=== PATIENT | male | born 1950 | race Caucasian/White ===

== ENCOUNTER 2023-07-30 14:10 | Inpatient (IN) ==
[2023-07-30] MEDS ORDERED: Ondansetron 4 mg VIAL 2 MG/ML 2 ml VIAL ONE (14:40)
[2023-07-30 14:43] LABS: INR 1.28 (0.83-1.13)
[2023-07-30] MEDS: Ondansetron 4 mg VIAL 2 MG/ML 2 ml VIAL IV ONE (14:43)
[2023-07-30] MEDS: Pantoprazole VIAL 40 MG VIAL IV ONE (14:43)
[2023-07-30 14:46] LABS: Hemoglobin 12.7 g/dL (13.2-16.3); Mean Corpuscular Hemoglobin 32.5 pg (27-33); Mean Corpuscular Hgb Conc 33.3 g/dL (31-36); Mean Corpuscular Volume 97.4 fL (80-97); Mean Platelet Volume 8.3 fL (7.5-11.2); Platelet Count 183 10^3/uL (150-450); Red Cell Distribution Width 13.6 % (12-17)
[2023-07-30] MEDS: NS 0.9% 1000 ml BAG 2,000 ML IV ONE (15:00)
[2023-07-30 15:13] LABS: Activated Partial Thrombo Time 24.6 seconds (26.0-38.0)
[2023-07-30] MEDS: Iodixanol (CONTRAST) 320 MG/ML 100 ML SDV IV ONE (15:16)
[2023-07-30 15:17] LABS: Albumin 3.8 g/dL (3.2-5.2); Albumin/Globulin Ratio 1.7 (1-3); Calcium 7.7 mg/dL (8.6-10.3); Creatinine, Serum 1.21 mg/dL (0.67-1.17); Globulin 2.3 g/dL (2-4); Potassium 3.9 mmol/L (3.5-5.0); Total Bilirubin 0.9 mg/dL (0.2-1.0); Total Protein 6.1 g/dL (6.4-8.9); eGFR CKD-EPI 63.6 (>60)
[2023-07-30 15:20] LABS: ABS Lymphocytes 1.4 10^3/uL (1.0-4.8); ABS Monocytes 1.8 10^3/uL (0.0-1.1); ABS Neutrophils 10.8 10^3/uL (1.5-7.6); ABS Nucleated RBC 0.01 10^3/ul; Lymphocyte % 9.9 %; Nucleated Red Blood Cells % 0.1 %/100WBC (0.0-0.8)
[2023-07-30] MEDS: Pantoprazole 80 mg in NS BAG 80 MG/250 ML BAG IV ONE (15:50)
[2023-07-30] MEDS ORDERED: Succinylcholine 200 mg VIAL 20 mg/ml 10 ml VIAL (200 mg) IV ONE (16:07)
[2023-07-30] MEDS ORDERED: Propofol 10 MG/ML 20 ML BTL IV ONE (16:07)
[2023-07-30] MEDS ORDERED: fentaNYL 100 mcg/2 ml 50 MCG/ML VIAL IV ONE (16:09)
[2023-07-30] MEDS ORDERED: Midazolam 2 mg/2 ml VIAL 1 mg/ml 2 ml VIAL (2 mg) IV SLOW PU ONE (16:21)
[2023-07-30 16:25] LABS: High Sensitivity Troponin 1 Hr 20 pg/mL (<20)
[2023-07-30] MEDS ORDERED: Naloxone 0.4 mg VIAL 0.4 mg/ml 1 ml VIAL IV PRN (16:32)
[2023-07-30] MEDS ORDERED: fentaNYL 100 mcg/2 ml 50 MCG/ML VIAL IV PRN (16:32)
[2023-07-30] MEDS ORDERED: NS 0.45% 1000 ml BAG 1,000 ML IV SCH (17:00)
[2023-07-30] MEDS ORDERED: Albumin Human 25% 25 GM/100 ML BTL IV ONE (17:12)
[2023-07-30] MEDS ORDERED: Phenylephrine 40 mcg/mL 10mL (400mcg) SYRINGE ONE (17:12)
[2023-07-30 19:07] LABS: Hematocrit 25.1 % (38-53); Hemoglobin 8.5 g/dL (13.2-16.3)
[2023-07-30] MEDS: Acetaminophen IV 1 GM/100ML 1,000 MG/100 ML BAG IV ONE (19:09)
[2023-07-30] MEDS: Lactated Ringers 1000 ml BAG 1,000 ML IV SCH (19:09)
[2023-07-30] MEDS: Buffered Lidocaine 1% SYRIN 1 ml INTRADERM ONE (19:09)
[2023-07-31 00:31] LABS: Hematocrit 25.2 % (38-53); Hemoglobin 8.6 g/dL (13.2-16.3)
[2023-07-31] MEDS: Pantoprazole 80 mg in NS BAG 80 MG/250 ML BAG IV SCH (01:27)
[2023-07-31 05:52] LABS: Hematocrit 22.9 % (38-53); Hemoglobin 8.1 g/dL (13.2-16.3); Mean Corpuscular Hgb Conc 35.3 g/dL (31-36); Mean Corpuscular Volume 96.2 fL (80-97); Mean Platelet Volume 8.5 fL (7.5-11.2); Platelet Count 121 10^3/uL (150-450); Red Blood Count 2.38 10^6/uL (4.06-5.63); Red Cell Distribution Width 13.3 % (12-17); White Blood Count 8.1 10^3/uL (3.6-10.2)
[2023-07-31 06:22] LABS: Calcium 7.1 mg/dL (8.6-10.3); Creatinine, Serum 0.84 mg/dL (0.67-1.17); Magnesium 1.9 mg/dL (1.9-2.7); Potassium 3.7 mmol/L (3.5-5.0); eGFR CKD-EPI 92.7 (>60)
[2023-07-31 06:31] LABS: ABS Lymphocytes 0.9 10^3/uL (1.0-4.8); ABS Monocytes 1.6 10^3/uL (0.0-1.1); ABS Neutrophils 5.6 10^3/uL (1.5-7.6); ABS Nucleated RBC 0.01 10^3/ul; Lymphocyte % 11.3 %; Nucleated Red Blood Cells % 0.1 %/100WBC (0.0-0.8)
[2023-07-31 06:32] LABS: RBC Morphology Normal (Normal)
[2023-07-31 08:55] LABS: Ferritin 582.1 ng/mL (24-336)
[2023-07-31 14:17] LABS: Hematocrit 23.1 % (38-53)
[2023-07-31] MEDS: Ferric Gluconate IV 250 MG in NS 0.9% 250 ml 200 ML IVPB SCH (14:46)
[2023-08-01] MEDS: Acetaminophen IV 1 GM/100ML 1,000 MG/100 ML BAG IV PRN (02:25)
[2023-08-01 05:40] LABS: Hematocrit 21.3 % (38-53); Hemoglobin 7.6 g/dL (13.2-16.3); Mean Corpuscular Hgb Conc 35.5 g/dL (31-36); Mean Corpuscular Volume 95.7 fL (80-97); Mean Platelet Volume 8.9 fL (7.5-11.2); Platelet Count 116 10^3/uL (150-450); Red Blood Count 2.23 10^6/uL (4.06-5.63); Red Cell Distribution Width 13.4 % (12-17); White Blood Count 7.6 10^3/uL (3.6-10.2)
[2023-08-01 06:26] LABS: Creatinine, Serum 0.78 mg/dL (0.67-1.17); Potassium 3.3 mmol/L (3.5-5.0); eGFR CKD-EPI 94.8 (>60)
[2023-08-01 07:09] LABS: ABS Lymphocytes 1.2 10^3/uL (1.0-4.8); ABS Monocytes 1.6 10^3/uL (0.0-1.1); ABS Neutrophils 4.8 10^3/uL (1.5-7.6); Lymphocyte % 15.7 %
[2023-08-01 07:10] LABS: Eosinophil % 0.1 %
[2023-08-01] MEDS: Potassium Chloride LIQUID 20 MEQ/15 ML LIQUID PO ONE (09:59)
[2023-08-01] MEDS ORDERED: Zosyn per Pharmacy NOTE FOLLOW UP SCH (15:00)
[2023-08-01] MEDS ORDERED: Vancomycin per Pharmacy 1 EA NOTE FOLLOW UP SCH (15:00)
[2023-08-01] MEDS: Piperacillin/Tazobac 3.375 BAG 3.375 GM/100 ML BAG IV ONE (15:31)
[2023-08-01 15:50] LABS: Urine Appearance Clear; Urine Bilirubin Negative (Negative); Urine Blood Negative (Negative); Urine Color Yellow; Urine Glucose Negative (Negative); Urine Ketones Negative (Negative); Urine Nitrite Negative (Negative); Urine Protein Trace (Negative); Urine Specific Gravity 1.022 (1.002-1.030); Urine Urobilinogen Negative (Negative); Urine pH 6.5 (5.0-8.0)
[2023-08-01] MEDS: Vancomycin 1,000 MG in NS 0.9% 250 ml 250 ML IVPB ONE (16:31)
[2023-08-01] MEDS: Acetaminophen IV 1 GM/100ML 1,000 MG/100 ML BAG IV ONE (20:27)
[2023-08-01 20:32] LABS: ABS Lymphocytes 0.8 10^3/uL (1.0-4.8); ABS Monocytes 1.2 10^3/uL (0.0-1.1); ABS Neutrophils 5.5 10^3/uL (1.5-7.6); Eosinophil % 0.1 %; Hematocrit 24.7 % (38-53); Hemoglobin 8.4 g/dL (13.2-16.3); Lymphocyte % 10.2 %; Mean Corpuscular Hemoglobin 33.1 pg (27-33); Mean Corpuscular Hgb Conc 34.2 g/dL (31-36); Mean Corpuscular Volume 96.8 fL (80-97); Mean Platelet Volume 8.1 fL (7.5-11.2); Platelet Count 149 10^3/uL (150-450); Red Blood Count 2.55 10^6/uL (4.06-5.63); Red Cell Distribution Width 13.4 % (12-17); White Blood Count 7.6 10^3/uL (3.6-10.2)
[2023-08-01] MEDS: ZOSYN 3.375 GM Q8H per EXTENDED INFUSION IV SCH (20:47)
[2023-08-01 20:49] LABS: Urine Appearance Clear; Urine Bilirubin Negative (Negative); Urine Blood 1+ (Negative); Urine Color Light-Yellow; Urine Glucose Trace (Negative); Urine Ketones Negative (Negative); Urine Nitrite Negative (Negative); Urine Protein Trace (Negative); Urine Specific Gravity 1.015 (1.002-1.030); Urine Urobilinogen Negative (Negative)
[2023-08-01 20:51] LABS: Urine Bacteria Absent /HPF (Absent); Urine Red Blood Cell Trace(0-2/hpf) /HPF (0-Trace); Urine Squamous Epithelial Cell Present /HPF (Absent); Urine White Blood Cell Trace(0-5/hpf) /HPF (0-Trace)
[2023-08-02] MEDS: Vancomycin 1,250 MG in NS 0.9% 250 ml 250 ML IVPB SCH (01:34)
[2023-08-02 09:07] LABS: ABS Monocytes 1.4 10^3/uL (0.0-1.1); ABS Neutrophils 7.4 10^3/uL (1.5-7.6); Eosinophil % 0.1 %; Hematocrit 27.7 % (38-53); Hemoglobin 9.7 g/dL (13.2-16.3); Lymphocyte % 9.9 %; Mean Corpuscular Hemoglobin 33.5 pg (27-33); Mean Corpuscular Hgb Conc 34.9 g/dL (31-36); Mean Platelet Volume 9.9 fL (7.5-11.2); Platelet Count 149 10^3/uL (150-450); Red Blood Count 2.89 10^6/uL (4.06-5.63); Red Cell Distribution Width 13.8 % (12-17); White Blood Count 9.8 10^3/uL (3.6-10.2)
[2023-08-02 09:25] LABS: Calcium 7.8 mg/dL (8.6-10.3); Creatinine, Serum 0.82 mg/dL (0.67-1.17); Magnesium 2.1 mg/dL (1.9-2.7); Phosphorus 1.6 mg/dL (2.5-5.0); Potassium 3.6 mmol/L (3.5-5.0); eGFR CKD-EPI 93.3 (>60)
[2023-08-02] MEDS: Acetaminophen IV 1 GM/100ML 1,000 MG/100 ML BAG IV PRN (10:30)
[2023-08-02] MEDS: Iohexol 350 (CONTRAST) 500 ML MDV IV ONE (11:22)
[2023-08-02] MEDS: Potassium Chlor 20 meq TAB.ER PO ONE (12:06)
[2023-08-02] MEDS: Potassium Phosphate IV 15 MMOL in NS 0.9% 250 ml 250 ML IVPB ONE (12:06)
[2023-08-02] MEDS: Heparin 5000 UNITS/ML 1 mL VIAL SUBCUT SCH (16:17)
[2023-08-03 06:19] LABS: Hematocrit 24.9 % (38-53); Hemoglobin 8.7 g/dL (13.2-16.3); Mean Corpuscular Hemoglobin 33.6 pg (27-33); Mean Corpuscular Hgb Conc 35.1 g/dL (31-36); Mean Corpuscular Volume 95.9 fL (80-97); Mean Platelet Volume 9.2 fL (7.5-11.2); Platelet Count 180 10^3/uL (150-450); White Blood Count 9.8 10^3/uL (3.6-10.2)
[2023-08-03 06:50] LABS: Calcium 7.4 mg/dL (8.6-10.3); Creatinine, Serum 0.88 mg/dL (0.67-1.17); Potassium 3.5 mmol/L (3.5-5.0); eGFR CKD-EPI 91.4 (>60)
[2023-08-03] MEDS ORDERED: Pantoprazole VIAL 40 MG VIAL IV SCH (09:00)
[2023-08-03] MEDS: Potassium Chlor 20 meq TAB.ER PO ONE (09:15)
[2023-08-03] MEDS ORDERED: Vancomycin Trough Check NOTE FOLLOW UP ONE (11:30)
[2023-08-03 12:16] LABS: Creatinine, Serum 0.91 mg/dL (0.67-1.17); Vancomycin Trough 7.9 mcg/mL; eGFR CKD-EPI 89.5 (>60)
[2023-08-03 14:03] VITALS: BP 115/65
== END 2023-08-03 16:30 | disposition home or self-care (01) | DRG 377 ==
LOC: ED 14:10 → SUATTDRO 15:51 → EDHOLD 15:51 → MED 15:51 → ICU 18:40 → MED 07-31 09:35
PROVIDERS: ADMIT Student in an Organized Health Care Education/Training Program; ATTEND Internal Medicine
PROC: O.GIEGD (2023-07-30 16:50)